=== PATIENT | female | born 1975 | race Caucasian/White ===

== ENCOUNTER 2024-01-29 12:31 | Emergency (ER) | payer SELFPAY ==
[2024-01-29] MEDS: Ketorolac 30 MG/ML SDV IM ONE (12:58)
== END 2024-01-29 13:57 | disposition home or self-care (01) ==
LOC: FB.ED 12:31
DX: S93.432A Sprain of tibiofibular ligament of left ankle, initial encounter (principal); E10.9 Type 1 diabetes mellitus without complications; F17.290 Nicotine dependence, other tobacco product, uncomplicated; Z88.8 Allergy status to other drugs, medicaments and biological substances; X58.XXXA Exposure to other specified factors, initial encounter; Y93.41 Activity, dancing
CPT/HCPCS: 73610; 96372; 99283; J1885

== ENCOUNTER 2024-09-19 07:33 | Emergency (ER) | payer OTHER, MEDICAID | END 2024-09-19 08:24 | disposition home or self-care (01) | LOC: FB.ED 07:33 | DX: S61.011A Laceration without foreign body of right thumb without damage to nail, initial encounter (principal); Z88.8 Allergy status to other drugs, medicaments and biological substances; E10.9 Type 1 diabetes mellitus without complications; W31.2XXA Contact with powered woodworking and forming machines, initial encounter | CPT/HCPCS: 99283 ==